=== PATIENT | female | born 1990 | race Two or more races ===

== ENCOUNTER 2017-03-12 13:30 | Observation (INO) | payer OTHER ==
[~2017-03-12] VITALS: Ht 160 cm; Wt 78.0 kg
[2017-03-12] MEDS ORDERED: BETAMETHASONE ACET (6MG/ML) 5ML VIAL IM ONE (14:00)
[2017-03-12] MEDS ORDERED: LACTATED RINGER'S 1,000 ML IV ONE (15:30)
== END 2017-03-12 16:40 | disposition home or self-care (01) | DRG 782 ==
LOC: LDRP 13:30
PROVIDERS: ADMIT Obstetrics & Gynecology; ATTEND Obstetrics & Gynecology
DX: O36.5930 Maternal care for other known or suspected poor fetal growth, third trimester, not applicable or unspecified (principal); Z3A.00 Weeks of gestation of pregnancy not specified
CPT/HCPCS: 59025; 76818; 81002; 96360; 96372; G0378; J0702

== ENCOUNTER 2017-03-13 19:35 | Observation (INO) | payer OTHER ==
[~2017-03-13] VITALS: Ht 33 cm; Wt 0.5 kg
[2017-03-13] MEDS ORDERED: BETAMETHASONE ACET (6MG/ML) 5ML VIAL ONE (19:52)
[2017-03-13] MEDS ORDERED: BETAMETHASONE ACET (6MG/ML) 5ML VIAL IM ONE (20:00)
[2017-03-13] MEDS ORDERED: NIFEdipine 10 MG CAP ONE (20:41)
[2017-03-13] MEDS ORDERED: TERBUTALINE SULFATE 1 MG/ML 1ML VIAL SC ONE ×2 (20:43→21:00)
[2017-03-13] MEDS ORDERED: NIFEdipine 10 MG CAP PO ONE (20:45)
== END 2017-03-14 00:20 | disposition home or self-care (01) | DRG 781 ==
LOC: INTOOBSV 19:35 → LDRP 19:35
PROVIDERS: ADMIT Specialist; ATTEND Specialist
DX: O26.893 Other specified pregnancy related conditions, third trimester (principal); N89.8 Other specified noninflammatory disorders of vagina; Z3A.35 35 weeks gestation of pregnancy
CPT/HCPCS: 59025; 81002; 96372; G0378; J0702; J3105

== ENCOUNTER 2017-03-21 16:00 | Observation (INO) | payer OTHER ==
[2017-03-21] MEDS ORDERED: NIF10C PO (16:32)
[2017-03-21] MEDS ORDERED: PREN-96 PO (16:33)
[2017-03-21 16:51] LABS: Urine Bilirubin Negative (Negative); Urine Blood Negative /uL (Negative); Urine Color Yellow (Yellow); Urine Glucose Normal (Normal); Urine Ketone Negative (Negative); Urine Mucus FEW (None Seen); Urine Nitrite Negative (Negative); Urine RBC 1 /hpf (0 - 4); Urine Urobilinogen Normal (Negative); Urine pH 5.5 (5.0-8.0)
[2017-03-21 16:52] LABS: Basophils # (auto) 0 uL; Basophils % (auto) 0.4 % (0.0-2.0); CONDITION Y; Eosinophils # (auto) 0 uL; Eosinophils % (auto) 0.4 % (0.0-7.0); Hematocrit 33.7 % (36.0-46.0); Hemoglobin 11.2 g/dL (12.2-16.2); Lymphocytes # (auto) 1.8 uL; Lymphocytes % (auto) 17.1 % (10.0-50.0); Mean Corpuscular Hgb Conc. 33.3 g/dL (32.0-36.0); Mean Corpuscular Volume 84.3 fL (80.0-100.0); Mean Platelet Volume 10.2 fL (7.4-10.4); Monocytes # (auto) 0.8 uL; Monocytes % (auto) 7.6 % (0.0-12.0); Neutrophils # (auto) 7.7 uL; Neutrophils % (auto) 74.5 % (37.0-80.0); Platelet Count (auto) 286 10^3/uL (140-450); Red Cell Distribution Width 15.2 % (11.6-16.0); White Blood Cell 10.3 10^3/uL (4.4-10.8)
[2017-03-21 17:06] LABS: Albumin 2.4 g/dL (3.4-5.0); BUN/Creatinine Ratio 21.3; Bilirubin, Total 0.1 mg/dL (0.2-1.0); Calcium 8.1 mg/dL (8.5-10.1); Potassium 4.2 mmol/L (3.5-5.1); Total Protein 6.6 g/dL (6.4-8.2); Uric Acid 4.3 mg/dL (2.6-6.0)
[2017-03-21 17:09] LABS: INR 0.83 (0.9-1.15); Partial Thromboplastin Time 24.3 sec (22.64-33.71)
== END 2017-03-21 17:10 | disposition home or self-care (01) | DRG 782 ==
LOC: LDRP 16:00
PROVIDERS: ADMIT Specialist; ATTEND Specialist
DX: O36.5930 Maternal care for other known or suspected poor fetal growth, third trimester, not applicable or unspecified (principal); Z3A.36 36 weeks gestation of pregnancy
CPT/HCPCS: 36415; 59025; 80053; 80307; 81001; 81002; 84550; 85025; 85362; 85379; 85610; 85730; G0378